=== PATIENT | female | born 1965 | race Caucasian/White ===

== ENCOUNTER 2018-11-27 15:15 | Emergency (ER) | payer MEDICAID ==
--- NOTE | 2018-11-27 15:22 | EDPHY ---
H & P Time Seen by Provider: 11/27/18 15:22 HPI/ROS: HPI CHIEF COMPLAINT: Medication refill. HISTORY OF PRESENT ILLNESS: Very pleasant 53-year-old female, she presents emergency room stating that she needs her medications refilled. She denies any focal medical complaint. She states she takes albuterol rescue inhaler, as well as Advair maintenance. She does smoke cigarettes. 10-20 cigarettes per day. She states she has underlying COPD emphysema. And relies on her inhalers. She states she tried to make appoint with her primary care doctor today but was unable to do so and ran out of her inhaler. Here in emergency room she is in no acute distress, she does have a slight wheeze on exam and I did offer DuoNeb breathing treatment however she has declined this. She does not want any focal medical treatment here in the emergency room she just wants a prescription for her inhalers. Past Medical History: COPD, emphysema, anxiety Past Surgical History: Denies recent surgery Social History: Daily tobacco use 10-20 cigarettes. Denies illicit drugs or alcohol. Family History: Noncontributory ROS REVIEW OF SYSTEMS: 10 Systems were reviewed and negative with the exception of the elements mentioned in the history of present illness. Exam Constitutional vital signs stable, triage nursing summary reviewed, vital signs reviewed, awake/alert. Eyes normal conjunctivae and sclera, EOMI, PERRLA. HENT normal inspection, atraumatic, moist mucus membranes, no epistaxis, neck supple/ no meningismus, no raccoon eyes. Respiratory faint wheezing on exam, no distress, good air movement. Cardiovascular rate normal, regular rhythm, no murmur, no edema, distal pulses normal. Gastrointestinal soft, non-tender, no rebound, no guarding, normal bowel sounds, no distension, no pulsatile mass. Genitourinary no CVA tenderness. Musculoskeletal no midline vertebral tenderness, full range of motion, no calf swelling, no tenderness of extremities, no meningismus, good pulses, neurovascularly intact. Skin pink, warm, & dry, no rash, skin atraumatic. Neurologic awake, alert and oriented x 3, AAOx3, moves all 4 extremities equally, motor intact, sensory intact, CN II-XII intact, normal cerebellar, normal vision, normal speech. Psychiatric normal mood/affect. Heme/Lymph/Immune no lymphadenopathy. Differential Diagnosis: Includes but is not limited to in a particular order acute bronchitis, reactive airway disease, viral syndrome, underlying COPD, emphysema, medication refill Medical Decision Making: Plan for this patient she declined any focal medical treatment here in emergency room. Declined nebulizer. She is in no distress. Denies chest pain or significant shortness of breath. She states that she is only here to have her prescription filled. Have agreed to refill her albuterol inhaler, take-home inhaler, and Advair. I do highly encouraged to stop smoking. We discussed return precautions return emergency room if develops worsening shortness of breath, fever, vomiting, not doing well. She is comfortable this plan. Declined any focal medical treatment here in the ER. Source: Patient Constitutional: Initial Vital Signs Temperature (C) 36.6 C 11/27/18 15:26 Heart Rate 75 11/27/18 15:26 Respiratory Rate 16 11/27/18 15:26 Blood Pressure 129/87 H 11/27/18 15:26 O2 Sat (%) 95 11/27/18 15:26 O2 Delivery Mode Room Air Allergies/Adverse Reactions: iodine Allergy (Severe, Verified 11/27/18 15:23) Anaphylaxis Home Medications: Medication Instructions Recorded Advair 250/50 (*) 11/27/18 Albuterol Hfa Anes Only [Proair 11/27/18 Hfa Icu (*)] Albuterol [Proventil Inhaler HFA 1 - 2 puffs IH Q4H #1 mdi 11/27/18 (*)] Fluticasone/Salmeter 250/50Mcg 60 puffs IH BID #1 disk 11/27/18 [Advair 250/50 (*)] Lorazepam 11/27/18 Departure - Departure Disposition: Home, Routine, Self-Care Clinical Impression: Medication refill Condition: Good Instructions: Medicine Refill (ED) Additional Instructions: 1. Please stop smoking. 2. Return to the emergency room if he develops worsening symptoms. Prescriptions: Albuterol [Proventil Inhaler HFA (*)] 1 - 2 puffs IH Q4H #1 mdi Fluticasone/Salmeter 250/50Mcg [Advair 250/50 (*)] 60 puffs IH BID #1 disk
[2018-11-27 15:35] VITALS: BP 129/87
[2018-11-27] MEDS ORDERED: ALBUTEROL INH PREPACK MDI TAKEHOME ONE (15:41)
== END 2018-11-27 16:02 | disposition home or self-care (01) ==
LOC: CED 15:15
DX: Z76.0 Encounter for issue of repeat prescription (principal); J43.9 Emphysema, unspecified; F41.9 Anxiety disorder, unspecified
CPT/HCPCS: 99284-ER

== ENCOUNTER 2019-01-07 20:06 | Emergency (ER) | payer MEDICAID ==
--- NOTE | 2019-01-07 20:26 | EDPHY ---
H & P Stated Complaint: Requesting Advair and Proair med refill for asthma, COPD. Time Seen by Provider: 01/07/19 20:26 HPI/ROS: HPI CHIEF COMPLAINT: Medication refill. Requesting Advair and ProAir. HISTORY OF PRESENT ILLNESS: This patient is a 53-year-old female, she has a history of COPD/emphysema, and she smokes tobacco with ongoing use. 10 cigarettes per day. I saw her last month in the emergency room for medication refill she is back in the ER tonight requesting medication refill. She would like a new albuterol inhaler, as well as Advair. She presents and has some wheezing on exam however she is declining any x-ray blood work or breathing treatment here in emergency room. She simply asking for medication refill. He states he chronically wheezes. She does not have any chest pain or significant shortness of breath. I offered her breathing treatment here in the emergency room however she has declined this. In fact she tells me she really just wants medication refill and wants to be discharged. Past Medical History: COPD. Anxiety, emphysema, ongoing tobacco use Past Surgical History: Denies Social History: Smokes tobacco daily Family History: Denies ROS REVIEW OF SYSTEMS: 10 Systems were reviewed and negative with the exception of the elements mentioned in the history of present illness. Exam Constitutional triage nursing summary reviewed, vital signs reviewed, awake/ alert. Vital signs are stable. Eyes normal conjunctivae and sclera, EOMI, PERRLA. HENT normal inspection, atraumatic, moist mucus membranes, no epistaxis, neck supple/ no meningismus, no raccoon eyes. Respiratory faint wheezing bilaterally but no distress. Otherwise good air movement. Cardiovascular rate normal, regular rhythm, no murmur, no edema, distal pulses normal. Gastrointestinal soft, non-tender, no rebound, no guarding, normal bowel sounds, no distension, no pulsatile mass. Genitourinary no CVA tenderness. Musculoskeletal no midline vertebral tenderness, full range of motion, no calf swelling, no tenderness of extremities, no meningismus, good pulses, neurovascularly intact. Skin pink, warm, & dry, no rash, skin atraumatic. Neurologic awake, alert and oriented x 3, AAOx3, moves all 4 extremities equally, motor intact, sensory intact, CN II-XII intact, normal cerebellar, normal vision, normal speech. Psychiatric normal mood/affect. Heme/Lymph/Immune no lymphadenopathy. Differential Diagnosis: Includes but is not limited to in a particular order COPD, emphysema, COPD exacerbation, pneumonia, asthma, ongoing tobacco abuse. Medical Decision Making: Offered patient x-ray, blood work and DuoNeb breathing treatment here in emergency room hour patient is declining all this. Patient wants an albuterol take-home, and prescriptions for albuterol and Advair. I again counseled her on sensation smoking. I also counseled her that she should get a primary care doctor. We also discussed return precautions. Return emergency room if worsening symptoms questions or concerns includes trouble breathing, worsening breathing, pain in her chest, not doing well. Patient declined any further medical evaluation or workup. She is requesting albuterol and Advair prescription. Requesting take-home albuterol inhaler. This is been provided for her. We also discussed return precautions return emergency room if worsening shortness of breath, fever, not doing well. She declined any neb treatment her x-ray here in the ER. Do recommend she follows up with her primary care doctor Source: Patient - Personal History Current Tetanus Diphtheria and Acellular Pertussis (TDAP): Yes Tetanus Vaccine Date: 2015 - Medical/Surgical History Hx Asthma: Yes Hx Chronic Respiratory Disease: Yes Hx Diabetes: No Hx Cardiac Disease: No Hx Renal Disease: No Hx Cirrhosis: No Hx Alcoholism: No Hx HIV/AIDS: No Hx Splenectomy or Spleen Trauma: No Other PMH: Med hx-COPD,Asthma,anxiety,endometriosis. Surg-eye,tonsilectomy, benign breast cyst - Social History Smoking Status: Heavy smoker Constitutional: Initial Vital Signs Temperature (C) 36.7 C 01/07/19 20:21 Heart Rate 85 01/07/19 20:21 Respiratory Rate 20 01/07/19 20:21 Blood Pressure 155/106 H 01/07/19 20:21 O2 Sat (%) 94 01/07/19 20:21 O2 Delivery Mode Room Air Allergies/Adverse Reactions: iodine Allergy (Severe, Verified 01/07/19 20:19) Anaphylaxis Home Medications: Medication Instructions Recorded Albuterol Hfa Anes Only [Proair 11/27/18 Hfa Icu (*)] Fluticasone/Salmeter 250/50Mcg 60 puffs IH BID #1 disk 11/27/18 [Advair 250/50 (*)] Lorazepam 11/27/18 Albuterol [Proventil Inhaler HFA 1 - 2 puffs IH Q4H #1 mdi 01/07/19 (*)] Fluticasone/Salmeter 250/50Mcg 60 puffs IH BID #1 disk 01/07/19 [Advair 250/50 (*)] Medical Decision Making - Data Points Medications Given: Discontinued Medications Albuterol Sulfate (Proventil Inh Prepack) 1 mdi JESS GONSALEZ ONE Stop: 01/07/19 20:41 Last Admin: 01/07/19 20:46 Dose: 1 mdi Departure - Departure Disposition: Home, Routine, Self-Care Clinical Impression: COPD (chronic obstructive pulmonary disease) Condition: Good Instructions: Albuterol (By breathing), Emphysema (ED), COPD (Chronic Obstructive Pulmonary Disease) (ED) Additional Instructions: 1. Refrain from smoking. 2. Return to the emergency room if you develops worsening symptoms questions or concerns. Referrals: NONE *PRIMARY CARE P,. [Primary Care Provider] - As per Instructions [facility],. [Clinic] - As per Instructions Prescriptions: Albuterol [Proventil Inhaler HFA (*)] 1 - 2 puffs IH Q4H #1 mdi Fluticasone/Salmeter 250/50Mcg [Advair 250/50 (*)] 60 puffs IH BID #1 disk
[2019-01-07] MEDS ORDERED: ALBUTEROL INH PREPACK MDI TAKEHOME ONE (20:40)
[2019-01-07 21:37] VITALS: BP 123/86
== END 2019-01-07 21:37 | disposition home or self-care (01) ==
LOC: CED 20:06
DX: Z76.0 Encounter for issue of repeat prescription (principal); J44.9 Chronic obstructive pulmonary disease, unspecified; F41.9 Anxiety disorder, unspecified
CPT/HCPCS: 99284-ER